=== PATIENT | male | born 1950 | race American Indian/Alaskan Native ===

== ENCOUNTER 2016-08-17 10:12 | Outpatient (CLI) | payer BC ==
--- NOTE | 2016-08-17 10:33 | XRay Report ---
RIGHT SHOULDER THREE VIEWS: 08/17/16 10:12:00 CLINICAL: Pain. FINDINGS: Normal glenohumeral alignment. Glenohumeral joint arthritis with inferior osteophyte. Hill-Sachs lesion of the superolateral humeral head. Normal AC joint. No fracture or dislocation. No bone lesion. Normal soft tissues. IMPRESSION: Mild to moderate glenohumeral joint arthritis and a Hill-Sachs lesion suggesting a prior dislocation.
== END 2016-08-17 10:13 | disposition home or self-care (01) ==
LOC: XRAY 10:12
PROVIDERS: ATTEND Internal Medicine
DX: M13.811 Other specified arthritis, right shoulder (principal); M25.711 Osteophyte, right shoulder

== ENCOUNTER 2016-12-10 13:45 | Outpatient (CLI) | payer BC ==
--- NOTE | 2016-12-10 15:22 | Fluoroscopy Report ---
FLUOROSCOPY ARTHROGRAM SHOULDER RIGHT HISTORY: Pain in right shoulder, evaluate for rotator cuff tear. DESCRIPTION OF PROCEDURE: Informed consent was obtained. Sterile technique was utilized. 1% lidocaine for skin anesthesia. Using fluoroscopy guidance, a 22-gauge spinal needle was advanced to the right glenohumeral joint. A small amount of Omnipaque-180 was injected to ensure intra-articular location. There was also a small amount of contrast agent in the subscapularis tendon sheath. Approximately 15 cc of a solution containing 0.1 mmol of gadolinium was injected. The patient tolerated the procedure without difficulty. The patient was sent to the MRI suite in stable condition. Impression: Successful right shoulder arthrogram for MR arthrogram. Please await the formal MRI right shoulder report.
--- NOTE | 2016-12-10 15:59 | Short Stay Summary ---
Short Stay Documentation Date of service: 12/10/16 - History Principal diagnosis: right shoulder pain - Allergies and Medications Current Medications: Allergies No Known Allergies Allergy (Unverified 08/17/16 10:13) - Physical exam General appearance: no acute distress Extremities: no ischemia, pulses intact, No edema - Brief post op/procedure progress note Date of procedure: 12/10/16 Pre-op diagnosis: right shoulder pain Post-op diagnosis: same Procedure: right shoulder arthrogram Anesthesia: local Findings: see report Surgeon: VERONICA MANLEY Estimated blood loss: none Pathology: none Condition: stable - Hospital course Hospital course: uneventful, pt went to MRI - Disposition Condition at discharge: Good Disposition: DC-01 TO HOME OR SELFCARE
--- NOTE | 2016-12-11 14:09 | Magnetic Resonance Report ---
MRI UPPER EXTREMITY JOINT RIGHT WITH CONTRAST HISTORY: Pain in right shoulder, assess for rotator cuff tear. TECHNIQUE: Multiple T1 and T2-weighted images with and without fat suppression were obtained of the right shoulder following intra-articular contrast. FINDINGS: Correlation is made with the right shoulder films dated 08/17/16 and right shoulder arthrogram films performed the same day. There is adequate intra-articular contrast with good hydro-distention of the shoulder joint. The bone marrow signal is within normal limits. No evidence for fracture, bone marrow edema or bone lesion. There are mild osteoarthritic changes at the glenohumeral joint and moderate osteoarthritic changes at the a.c. joint. Intra-articular cartilage is within normal limits. The supraspinatus tendon and subscapularis tendon are abnormal. The supraspinatus tendon remains attached to the proximal humerus. No full thickness tear is detected. There is however suggestion of 2 partial tears. A focal articular surface defect is identified on coronal T1 fat sat image 12 at the level of the acromion. This appears approximately 50% thickness. A second focal defect is identified along the bursal surface of the distal supraspinatus tendon at its attachment on the proximal humerus. This is best demonstrated on coronal T2 fat sat image 15. The supraspinatus tendon is markedly thickened with increased intrinsic signal. There is no definite full-thickness tear. Severe tendinosis versus partial tear is suspected. The infraspinatus tendon and teres minor tendons are normal. The biceps tendon and its anchor upon the superior labrum is within normal limits. No SLAP lesion or labral defect is appreciated. IMPRESSION: Mild to moderate osteoarthritis. Abnormal supraspinatus and subscapularis tendons as outlined above. There appear to be 2 focal partial tears in the supraspinatus tendon. Severe tendinosis versus partial tear of the subscapularis tendon. No large full thickness defect with retraction is detected.
== END 2016-12-10 13:46 | disposition home or self-care (01) ==
LOC: FLUORO 13:45
PROVIDERS: ATTEND Orthopaedic Surgery
DX: M19.011 Primary osteoarthritis, right shoulder (principal)
CPT/HCPCS: 23350; 73040; 73222; Q9965

== ENCOUNTER 2017-09-08 11:44 | Outpatient (CLI) | payer BC ==
--- NOTE | 2017-09-08 12:58 | XRay Report ---
ROUTINE CHEST, TWO VIEWS: HISTORY: chest pain. The trachea, heart, mediastinal contour, lung juarez and bony thorax are unremarkable. IMPRESSION: Unremarkable chest x-ray.
== END 2017-09-08 11:45 | disposition home or self-care (01) ==
LOC: XRAY 11:44
PROVIDERS: ATTEND Internal Medicine
DX: I10 Essential (primary) hypertension (principal); R07.89 Other chest pain
CPT/HCPCS: 71046; 93005; 93010

== ENCOUNTER 2018-08-19 07:21 | Outpatient (CLI) | payer BC ==
[2018-08-19 07:50] LABS: Hematocrit 41.1 % (35.5-45.6); Hemoglobin 14.4 gm/dl (11.8-15.2); Mean Corpuscular HGB Conc 35 % (32-34); Mean Corpuscular Volume 90 fl (84-94); Platelet Count 260 K/mm3 (140-440); Red Blood Count 4.59 M/mm3 (3.65-5.03); Red Cell Distribution Width 13.1 % (13.2-15.2)
[2018-08-19 08:08] LABS: Alanine Aminotransferase 23 units/L (7-56); Albumin 4.4 g/dL (3.9-5); BUN/Creatinine Ratio 27; Blood Urea Nitrogen 19 mg/dL (9-20); Calcium 9.2 mg/dL (8.4-10.2); Chol/HDL Ratio 3.91 %; HDL Cholesterol 37 mg/dL (40-59); Hemolysis Index 4; LDL Cholesterol,Direct 105 mg/dL (50-130)
[2018-08-19 08:46] LABS: Bilirubin,Urine NEG (Negative); Blood,Urine NEG (Negative); Color,Urine Yellow (Yellow); Mucus,Urine FEW /HPF; Protein,Urine <15 mg/dL mg/dL (Negative); Urobilinogen,Urine < 2.0 mg/dL (<2.0)
== END 2018-08-19 07:22 | disposition home or self-care (01) ==
LOC: LAB 07:21
PROVIDERS: ATTEND Internal Medicine
DX: I10 Essential (primary) hypertension (principal); E66.9 Obesity, unspecified; M19.90 Unspecified osteoarthritis, unspecified site
CPT/HCPCS: 36415; 80053; 80061; 81001; 85027